=== PATIENT | female | born 1955 | race Caucasian/White ===

== ENCOUNTER 2021-10-26 12:23 | Emergency (ER) | payer MEDICARE, SELFPAY ==
[2021-10-26 12:30] VITALS: BP 163/98; PULSE 101; RESP 16; TEMP 36.5; O2SAT 99; BMI 22.3
--- NOTE | 2021-10-26 12:36 | W.ED.GENADLT ---
HPI - General Adult General: Chief complaint: General Medical Stated complaint: high BP Time Seen by Provider: 10/26/21 12:28 History of Present Illness: Ms. Curiel is a 66-year-old lady with history of hypertension, hyperlipidemia, and rheumatoid arthritis presenting to the emergency department due to high blood pressure. She reports first noticing generalized malaise which has been very mild associated with mild nausea for the past few days and then noticed higher blood pressure starting yesterday. Blood pressure has been greater than 170 systolic and greater than 110s diastolic. She denies specific associated headache, neurologic changes, chest pain, shortness of breath. Typically, prior to this, blood pressure was well controlled with blood pressures less than 120 over less than 80. She called her primary care who recommended decrease from losartan 100 mg every morning and lisinopril 20 mg nightly to 40 mg nightly for the lisinopril and maintaining losartan. She did take her losartan this morning however blood pressures continue to be elevated she took 20 mg lisinopril approximately 30 minutes prior to arrival. Overall intensity symptoms is mild. Course has persisted. No other specific changes in health, exacerbating, or alleviating factors identified. Onset (ago): day(s) Severity: mild Review of Systems General: Reports: 10 or more systems reviewed and unremarkable except in HPI and below PFSH ED PFSH: Medical History Dyslipidemia Hypertension Rheumatoid arthritis Surgical History No significant past surgical history Family History Father CAD (coronary artery disease) [place] Mother Cancer Colon ca, Skin ca Hypertension CAD (coronary artery disease) [place] Social History Smoking and tobacco status: never smoked Physical Exam Const: COMMON NORMALS: alert GENERAL APPEARANCE: cooperative and well developed HENMT: COMMON NORMALS: normocephalic and atraumatic HEAD & SCALP: normocephalic and atraumatic Eye: COMMON NORMALS: conjunctivae normal CONJUNCTIVA: Yes conjunctivae normal SCLERA: sclerae normal Neck/C-Spine: COMMON NORMALS: supple GENERAL: Yes trachea midline Resp: COMMON NORMALS: normal respiratory effort and clear to auscultation bilaterally EFFORT & INSPECTION: Yes able to speak in complete sentences AUSCULTATION: clear to auscultation bilaterally Cardio: COMMON NORMALS: regular rate and regular rhythm RATE: regular rate RHYTHM: regular rhythm GI: COMMON NORMALS: Soft to palpation PALPATION: Yes Soft to palpation and No Tenderness to palpation present (GI) PERCUSSION: normal to percussion Extremity: GENERAL: Yes normal exam except as noted and No edema Neuro: COMMON NORMALS: moves all extremities SENSORIUM/ORIENTATION: Yes alert and No Orientation impaired Psych: COMMON NORMALS: mental status grossly normal and Normal thought process present THOUGHT PROCESS: Normal thought process present Course ED course: - Patient was seen and evaluated by me at bedside - Patient placed on cardiac monitors, IV access obtained - Initial evaluation notable for exam as above - Labs and xrays personally interpreted by me. EKG notable for sinus rhythm with nonspecific ST segment abnormalities - Labs notable for no leukocytosis or evidence of anemia. Metabolic panel with mild hyponatremia and hypochloremia with minimally increased anion gap. Small bolus of IV fluids given. BNP mildly negative. Urinalysis not concerning for urinary tract infection. - Imaging notable for no lobar consolidation or pneumothorax -Metoprolol given - Upon serial reexamination after treatment the patient was improved - Based on patient history, evaluation, and testing as interpreted the most likely cause of the patient's condition is hypertension without evidence of endorgan dysfunction - The results of ED evaluation were discussed with the patient including prescriptions and/or symptomatic cares (if applicable) including appropriate and responsible use, followup plan, and return precautions. The patient verbalized understanding and felt safe for discharge. - Patient discharged in satisfactory condition. Note: Click bubbles or prepopulated lau in note writing are used for assistance with data collection and billing and are inherently more limited than narrative and other text portions of this note. Please use narrative for additional clinical history and defer to narrative/free test for any case of contradictory information. If information appears in only free text or click bubble it should be considered present or absent as reported. Please contact note junior technical writer for clarifications of clinical information or contradictory information. MDM is a brief summary, contradictory or erroneous seeming information should be clarified and full note should be reviewed. Vital Signs: Vital signs: Vital Signs Temperature 97.7 F 10/26/21 12:30 Pulse Rate 86 10/26/21 15:48 Respiratory Rate 13 10/26/21 15:48 Blood Pressure 170/96 10/26/21 15:48 Pulse Oximetry 98 10/26/21 15:48 MDM - General Adult Medical Decision Making 66-year-old lady presenting due to concern over high pressure and associated symptoms. Recent medication changed by PCP. No evidence of endorgan dysfunction on laboratory studies. Satisfactory continue outpatient management. Medical Records I reviewed the patient's medical records. Lab Data I reviewed the patient's lab results. : 10/26/21 12:55 10/26/21 12:55 Radiology Impressions Chest X-Ray 10/26/21 12:43 IMPRESSION: No acute findings. Laboratory Results WBC 5.0 10^3/uL (4.0-10.0) 10/26/21 12:55 RBC 4.40 10^6/uL (4.1-5.3) 10/26/21 12:55 Hgb 12.0 g/dL (11.5-15.3) 10/26/21 12:55 Hct 35.9 % (37.0-47.0) L 10/26/21 12:55 MCV 81.6 fl (81-99) 10/26/21 12:55 MCH 27.3 pg (28.0-34.0) L 10/26/21 12:55 MCHC 33.4 g/dL (30.0-36.0) 10/26/21 12:55 RDW 13.7 % (12.1-15.1) 10/26/21 12:55 Plt Count 445 10^3/cmm (130-400) H 10/26/21 12:55 MPV 9.6 fL (7.4-10.4) 10/26/21 12:55 Neut % (Auto) 59.8 % 10/26/21 12:55 Lymph % (Auto) 24.9 % 10/26/21 12:55 [place] % (Auto) 10.5 % 10/26/21 12:55 Eos % (Auto) 2.2 % 10/26/21 12:55 Baso % (Auto) 1.8 % 10/26/21 12:55 Neut # (Auto) 2.97 10^3/uL (1.8-7.7) 10/26/21 12:55 Lymph # (Auto) 1.2 10^3/uL (0.8-4.8) 10/26/21 12:55 [place] # (Auto) 0.5 10^3/uL (0.2-0.9) 10/26/21 12:55 Eos # (Auto) 0.1 10^3/uL (0.0-0.8) 10/26/21 12:55 Baso # (Auto) 0.1 10^3/uL (0.0-0.1) 10/26/21 12:55 Nucleated RBC % (auto) 0 % 10/26/21 12:55 Nucleated RBCs # 0.0 /100WBC 10/26/21 12:55 Sodium 130 mmol/L (136-145) L 10/26/21 12:55 Potassium 4.2 mmol/L (3.5-5.1) 10/26/21 12:55 Chloride 91 mmol/L (98-107) L 10/26/21 12:55 Carbon Dioxide 22 mmol/L (22-29) 10/26/21 12:55 Anion Gap 21.2 (5-19) H 10/26/21 12:55 BUN 20 mg/dL (8-23) 10/26/21 12:55 Creatinine 0.8 mg/dL (0.5-0.9) 10/26/21 12:55 GFR Calculation 71.5 mL/min (90-130) L 10/26/21 12:55 Glucose 116 mg/dL (65-115) H 10/26/21 12:55 Calculated Osmolality 274 mOsm/kg (285-295) L 10/26/21 12:55 Calcium 10.5 mg/dL (8.5-10.5) 10/26/21 12:55 Total Bilirubin 0.2 mg/dL (0.15-1.2) 10/26/21 12:55 AST 25 U/L (0-32) 10/26/21 12:55 ALT 22 U/L (0-33) 10/26/21 12:55 Alkaline Phosphatase 104 IU/L (35-105) 10/26/21 12:55 Troponin T Baseline 6 ng/L (0-10) 10/26/21 12:55 Troponin T 120 Minute 6.00 ng/L (0-10) 10/26/21 14:48 Delta Troponin T 0 ABS# (0-10) 10/26/21 14:48 NT-Pro-B Natriuret Pep 1463 pg/mL (0-125) H 10/26/21 12:55 Total Protein 7.9 g/dL (6.6-8.7) 10/26/21 12:55 Albumin 5.0 g/dL (3.5-5.2) 10/26/21 12:55 Globulin 2.9 g/dL (1.3-4.6) 10/26/21 12:55 TSH 1.12 uIU/mL (0.27-4.20) 10/26/21 12:55 Urine Color Yellow (Yellow) 10/26/21 13:05 Urine Appearance Clear (CLEAR) 10/26/21 13:05 Urine pH 6 (5-7) 10/26/21 13:05 Ur Specific [place] 1.015 (1.005-1.030) 10/26/21 13:05 Urine Protein Neg (Negative) 10/26/21 13:05 Urine Glucose (UA) Norm (Normal) 10/26/21 13:05 Urine Ketones 1+ (Negative) H 10/26/21 13:05 Urine Blood Neg (Negative) 10/26/21 13:05 Urine Nitrate Negative (Negative) 10/26/21 13:05 Urine Bilirubin Neg (Negative) 10/26/21 13:05 Urine Urobilinogen Norm mg/dL (Negative) 10/26/21 13:05 Ur Leukocyte Esterase Negative (Negative) 10/26/21 13:05 Discharge Plan Discharge Patient Disposition: Home Clinical Impression: Hypertension, Hyponatremia, Malaise and fatigue Condition: Stable Prescriptions: New metoprolol tartrate 25 mg tablet 12.5 mg PO BID Qty: 30 0RF No Action terbinafine HCl 250 mg tablet 250 mg PO DAILY 0RF Salonpas 3.1-10-6 % adhesive patch,medicated 1 patch topical DAILY 0RF Rx Instructions: may leave on area for up to 8 hrs potassium chloride 20 mEq tablet extended release 20 meq PO DAILY 0RF nortriptyline 25 mg capsule 25 mg PO DAILY 0RF naloxone [Narcan] 4 mg/actuation spray,non-aerosol 4 mg intranasal Q2M 0RF Rx Instructions: spray 1 dose into ONE nostril; alternate nostrils w each dose until help arrives losartan 100 mg tablet 100 mg PO DAILY 0RF levothyroxine 50 mcg capsule 50 mcg PO DAILY 0RF ibuprofen 800 mg tablet 800 mg PO Q8H 0RF hydrocodone-acetaminophen 7.5-325 mg tablet 1 tab PO BID PRN0RF aspirin 325 mg tablet 325 mg PO DAILY 0RF duloxetine 30 mg capsule,delayed release(DR/EC) 30 mg PO DAILY 0RF Label Comments: Cymbalta tretinoin [Retin-A] 0.1 % cream 1 applic topical Q7D 0RF pregabalin 150 mg capsule 150 mg PO DAILY 0RF Label Comments: Lyrica Discharge Orders: Discharge ED (Routine); Ordered 10/26/21 Ordered By: Elpidio Keene Discharge Diet: Usual diet Discharge Activity: Increase activity as tolerated Patient Instructions: Metoprolol (By mouth), Hyponatremia (ED), Hypertension (ED) Activity Restrictions/Additional Instructions: Thank you for visiting the emergency department. You were seen and evaluated for high blood pressure. No evidence of stress on your organs was found. As discussed your electrolytes are mildly decreased which may be due to dehydration or overhydration with water. Please follow-up with your primary care provider regarding this. Regarding your blood pressure I will add metoprolol. As discussed please be cautious starting any new medication for opposite effect of blood pressure being too low. Please follow-up with your primary care provider within 1 week. Please return to the emergency department for anything that you are concerned about and feel needs emergency department evaluation. 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
--- NOTE | 2021-10-26 12:43 | XRR_ITS ---
PROCEDURE INFORMATION: Exam: XR Chest Exam date and time: 10/26/2021 1:00 PM Age: 66 years old Clinical indication: Other: Increased heart rate/hbp; Patient HX: High blood pressure; Additional info: Tachycardia TECHNIQUE: Imaging protocol: XR of the chest. Views: 1 view. COMPARISON: No relevant prior studies available. FINDINGS: Lungs: Unremarkable. No consolidation. Pleural spaces: Unremarkable. No pleural effusion. No pneumothorax. Heart/Mediastinum: Unremarkable. No cardiomegaly. Bones/joints: Unremarkable. XR/XR chest 1V portable [id number] IMPRESSION: No acute findings.
--- NOTE | 2021-10-26 12:44 | ECG_ITS ---
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 Measurements Intervals [place] Rate: 101 P: 28 OR: 156 QRS: -24 QRSD: 84 T: 30 QT: 340 QTc: 441 Interpretive Statements SINUS TACHYCARDIA LEFT ATRIAL ENLARGEMENT [-0.15mV P-WAVE IN V1/V2] BORDERLINE LEFT AXIS DEVIATION [QRS AXIS < -20] No previous ECG available for comparison Electronically Signed On 10-26-2021 17:13:24 CDT by Tomer Barron M.D. [id number]
[2021-10-26 13:04] VITALS: BP 161/99; PULSE 108; RESP 14; O2SAT 96
[2021-10-26 13:11] LABS: Basophils # 0.1 10^3/uL (0.0-0.1); Basophils % 1.8 %; Eosinophils # 0.1 10^3/uL (0.0-0.8); Eosinophils % 2.2 %; Hematocrit 35.9 % (37.0-47.0); Lymphocytes # 1.2 10^3/uL (0.8-4.8); Lymphocytes % 24.9 %; Mean Corpuscular HGB Conc 33.4 g/dL (30.0-36.0); Mean Corpuscular Hemoglobin 27.3 pg (28.0-34.0); Mean Corpuscular Volume 81.6 fl (81-99); Mean Platelet Volume 9.6 fL (7.4-10.4); Monocytes # 0.5 10^3/uL (0.2-0.9); Monocytes % 10.5 %; Neutrophils # 2.97 10^3/uL (1.8-7.7); Neutrophils % 59.8 %; Nucleated Red Blood Cells % 0 %; Platelet Count 445 10^3/cmm (130-400); Red Cell Distribution Width 13.7 % (12.1-15.1)
[2021-10-26] MEDS: sodium chloride 0.9% 500 ML 999 ML IV (13:25)
[2021-10-26 13:27] LABS: Add Urine Microscopic? NO; Charge for UA Resulting for Rev
[2021-10-26 13:28] LABS: Troponin(5th) Baseline 6 ng/L (0-10)
[2021-10-26 13:36] LABS: Alanine Aminotransferase 22 U/L (0-33); Alkaline Phosphatase 104 IU/L (35-105); Anion Gap 21.2 (5-19); Aspartate Amino Transferase 25 U/L (0-32); Blood Urea Nitrogen 20 mg/dL (8-23); Calcium 10.5 mg/dL (8.5-10.5); Carbon Dioxide 22 mmol/L (22-29); Chloride 91 mmol/L (98-107); Globulin 2.9 g/dL (1.3-4.6); Glomerular Filtration Rate 71.5 mL/min (90-130); Glucose 116 mg/dL (65-115); NT Pro B Type Natriuretic Pept 1463 pg/mL (0-125); Osmolality Calculated 274 mOsm/kg (285-295); Potassium 4.2 mmol/L (3.5-5.1); Sodium 130 mmol/L (136-145); Thyroid Stimulating Hormone 1.12 uIU/mL (0.27-4.20); Total Bilirubin 0.2 mg/dL (0.15-1.2); Total Protein 7.9 g/dL (6.6-8.7)
[2021-10-26 13:38] VITALS: BP 160/81; PULSE 96; RESP 14; O2SAT 96
[2021-10-26 13:41] LABS: Bilirubin Urine Neg (Negative); Blood Urine Neg (Negative); Glucose Urine UA Norm (Normal); Ketones Urine 1+ (Negative); Leukocyte Esterase Urine Negative (Negative); Nitrate Urine Negative (Negative); Protein Urine Neg (Negative); Specific Gravity, Urine 1.015 (1.005-1.030); Urine Appearance Clear (CLEAR); Urine Color Yellow (Yellow); Urobilinogen Urine Norm (Negative); pH Urine 6 (5-7)
[2021-10-26] MEDS: metoprolol tartrate 1 mg/1 mL SDV 5 mL 2.5 MG IVP (14:39)
[2021-10-26 14:40] VITALS: BP 143/106; PULSE 93; RESP 13; O2SAT 97
--- NOTE | 2021-10-26 14:44 | ECG_ITS ---
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 Measurements Intervals [place] Rate: 84 P: 42 SD: 148 QRS: -21 QRSD: 84 T: -12 QT: 367 QTc: 434 Interpretive Statements SINUS RHYTHM POSSIBLE LEFT ATRIAL ENLARGEMENT [-0.1mV P-WAVE IN V1/V2] BORDERLINE LEFT AXIS DEVIATION [QRS AXIS < -20] ST DEVIATION AND MODERATE T-WAVE ABNORMALITY, CONSIDER ANTERIOR ISCHEMIA [-0.1+ mV T-WAVE IN V3/V4] Compared to ECG 10/26/2021 12:52:22 T-wave abnormality now present Possible ischemia now present Sinus tachycardia no longer present Electronically Signed On 10-26-2021 17:15:22 CDT by Tomer Barron M.D. [id number]
[2021-10-26 15:16] LABS: Troponin 5 2HR Delta 0 ABS# (0-10)
[2021-10-26 15:48] VITALS: BP 170/96; PULSE 86; RESP 13; O2SAT 98
== END 2021-10-26 15:48 | disposition home or self-care (01) ==
PROVIDERS: Emergency Provider Emergency Medicine
DX: I10 Essential (primary) hypertension (principal); E87.1 Hypo-osmolality and hyponatremia; R53.81 Other malaise; R53.83 Other fatigue
CPT/HCPCS: 71045; 80053; 81003; 83880; 84443; 84484; 85025; 93005; 96361; 96374; 99284; J3490; J7040

== ENCOUNTER → 2023-10-07 18:53 | Outpatient (BNVA) | payer MEDICARE, SELFPAY | PROVIDERS: Visit Provider Family Medicine Adult Medicine | DX: M21.961 Unspecified acquired deformity of right lower leg (principal); M25.571 Pain in right ankle and joints of right foot | CPT/HCPCS: 73610 ==

== ENCOUNTER → 2023-10-08 15:30 | Outpatient (BNVA) | payer MEDICARE, SELFPAY | PROVIDERS: Visit Provider Podiatrist Foot & Ankle Surgery | DX: S82.831A Other fracture of upper and lower end of right fibula, initial encounter for closed fracture; X50.1XXA Overexertion from prolonged static or awkward postures, initial encounter | CPT/HCPCS: 99203 ==

== ENCOUNTER 2023-11-01 06:00 | Outpatient (CLI) | payer MEDICARE, SELFPAY | END 2023-11-01 23:59 | disposition home or self-care (01) | LOC: SPT 11-05 13:20 | PROVIDERS: Visit Provider Podiatrist Foot & Ankle Surgery | DX: Z46.89 Encounter for fitting and adjustment of other specified devices (principal); S82.831D Other fracture of upper and lower end of right fibula, subsequent encounter for closed fracture with routine healing; X58.XXXD Exposure to other specified factors, subsequent encounter | CPT/HCPCS: 97760; L1902 ==

== ENCOUNTER → 2023-11-01 10:31 | Outpatient (BNVA) | payer MEDICARE, SELFPAY | PROVIDERS: Visit Provider Podiatrist Foot & Ankle Surgery | DX: S82.831A Other fracture of upper and lower end of right fibula, initial encounter for closed fracture (principal); X58.XXXA Exposure to other specified factors, initial encounter | CPT/HCPCS: 73610; 99213 ==

== ENCOUNTER → 2023-11-13 13:04 | Outpatient (BNVA) | payer MEDICARE, SELFPAY | PROVIDERS: Visit Provider Podiatrist Foot & Ankle Surgery | DX: S82.831A Other fracture of upper and lower end of right fibula, initial encounter for closed fracture (principal); X58.XXXA Exposure to other specified factors, initial encounter | CPT/HCPCS: 73610; 99213 ==

== ENCOUNTER → 2024-01-02 09:18 | Outpatient (BNVA) | payer MEDICARE, SELFPAY | PROVIDERS: Visit Provider Podiatrist Foot & Ankle Surgery | DX: S82.831A Other fracture of upper and lower end of right fibula, initial encounter for closed fracture (principal); X58.XXXA Exposure to other specified factors, initial encounter | CPT/HCPCS: 73610; 99213 ==

== ENCOUNTER 2025-02-25 10:43 | Outpatient (CLI) | payer MEDICARE, SELFPAY ==
[2025-02-25 12:03] LABS: Alanine Aminotransferase 106 U/L (0-33); Albumin Level 4.5 g/dL (3.5-5.2); Alkaline Phosphatase 100 U/L (35-105); Anion Gap 14.1 (5-19); Aspartate Amino Transferase 68 U/L (0-32); Blood Urea Nitrogen 20 mg/dL (8-23); Calcium 10.4 mg/dL (8.5-10.5); Carbon Dioxide 33 mmol/L (22-29); Chloride 90 mmol/L (98-107); Globulin 3.2 g/dL (1.3-4.6); Glucose 178 mg/dL (65-115); Osmolality Calculated 285 mOsm/kg (285-295); Potassium 3.1 mmol/L (3.5-5.1); Sodium 134 mmol/L (136-145); Total Protein 7.7 g/dL (6.6-8.7)
[2025-02-26 11:45] LABS: Estimated GFR (Cystatin C) 31 (> OR = 60)
== END 2025-02-25 10:44 | disposition home or self-care (01) ==
LOC: LAB 10:46
DX: N18.4 Chronic kidney disease, stage 4 (severe) (principal)
CPT/HCPCS: 36415; 80053; 82610